=== PATIENT | male | born 1975 | race Caucasian/White ===

== ENCOUNTER → 2019-12-28 13:07 | Outpatient (BNVA) | payer SELFPAY | PROVIDERS: Visit Provider Nurse Practitioner Family | DX: R50.9 Fever, unspecified (principal); J06.9 Acute upper respiratory infection, unspecified; B97.89 Other viral agents as the cause of diseases classified elsewhere | CPT/HCPCS: 80053; 85025; 87400; 87635 ==

== ENCOUNTER → 2021-06-07 13:09 | Outpatient (BNVA) | payer OTHER, SELFPAY | PROVIDERS: Visit Provider Nurse Practitioner Family | DX: J06.9 Acute upper respiratory infection, unspecified (principal); B97.89 Other viral agents as the cause of diseases classified elsewhere; Z20.822 Contact with and (suspected) exposure to COVID-19 | CPT/HCPCS: 87635 ==

== ENCOUNTER 2022-01-25 15:02 | Emergency (ER) | payer SELFPAY ==
[2022-01-25 15:06] VITALS: BP 178/94; PULSE 87; RESP 18; TEMP 36.8; O2SAT 98; BMI 25.7
--- NOTE | 2022-01-25 15:20 | W.ED.EXTPRO ---
HPI - Extremity Problem General: Chief complaint: Extremity Injury, Upper Stated complaint: Wants a second opinion on smashed fingers Time Seen by Provider: 01/25/22 15:14 History of Present Illness: Patient presents with wanting second opinion on finger laceration and fracture he has. Patient seen at [facility] yesterday and has distal found phalanges of #3 and 4 finger fractured from dropping a heavy grade. Did have lacerations to both of his fingers and they were sewed up loosely. Patient is wanting a tetanus shot and 1 of there is any pain medicine can have because he cannot take narcotics to do being on Suboxone Associated symptoms: Deny chest pain, fever(s) or rash Review of Systems Const: Denies: fever(s), chills or body aches Eyes: Denies: eye discomfort ENMT: Denies: throat pain Card: Denies: chest pain Resp: Denies: dyspnea GI: Denies: abdominal pain, nausea or vomiting Musc: Reports: other (Pain right hand) Skin/Breast: Reports: other (Has lacerations of finger and right hand that are closed loosely); Denies: rash Neuro: Denies: headache(s) Psych: Denies: depression or suicidal ideation [facility] ED PFSH: Social History Smoking and tobacco status: current every day smoker Alcohol intake: never Physical Exam Const: COMMON NORMALS: no acute distress Cardio: COMMON NORMALS: regular rate RATE: regular rate Skin: OTHER: Laceration repair shows distal aspects of fat pad #3 and 4 finger with lacerations and loose configuration. Appears to be good blood flow and capillary refill to those areas able to move finger without difficulty neurovascular intact. Course Vital Signs: Vital signs: Vital Signs Temperature 98.2 F 01/25/22 15:06 Pulse Rate 87 01/25/22 15:06 Respiratory Rate 18 01/25/22 15:06 Blood Pressure 178/94 01/25/22 15:06 Pulse Oximetry 98 01/25/22 15:06 MDM - Extremity (Nontraumatic) Medical Decision Making Here for second opinion on his recently injured fingers. I gave him a second opinion and look like they did a good job down [facility] taking care of his fingers and they gave him Celebrex to help with his discomfort and give him a tetanus shot as requested. Patient has appointment with a hand surgeon on Friday at [facility]. Discharge Plan Discharge Patient Disposition: Home Clinical Impression: Finger fracture Condition: Stable Prescriptions: New benzonatate 100 mg capsule 200 mg PO TID PRN (Reason: cough) Qty: 14 0RF No Action buprenorphine-naloxone [Suboxone] 8-2 mg film 1 film BUCCAL DAILY 0RF dexamethasone 6 mg tablet 6 mg PO DAILY Qty: 7 0RF doxycycline monohydrate 100 mg capsule 100 mg PO BID Qty: 20 0RF Discharge Orders: Discharge ED (Routine); Ordered 01/25/22 Ordered By: Lamonte Schwab Discharge Diet: Usual diet Discharge Activity: Limit activity as instructed Activity Restrictions/Additional Instructions: Appointment with hand surgeon that you have next week. Keep dressing in place over the fingers. Take medication as directed. 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
[2022-01-25] MEDS: tetanus-dipt-pertussis 0.5 mL SDV IM (15:48)
== END 2022-01-25 15:50 | disposition home or self-care (01) ==
PROVIDERS: Emergency Provider Nurse Practitioner Family
DX: S62.609A Fracture of unspecified phalanx of unspecified finger, initial encounter for closed fracture (principal); S61.212A Laceration without foreign body of right middle finger without damage to nail, initial encounter; S61.214A Laceration without foreign body of right ring finger without damage to nail, initial encounter; X58.XXXA Exposure to other specified factors, initial encounter; F17.200 Nicotine dependence, unspecified, uncomplicated; Z23 Encounter for immunization
CPT/HCPCS: 90471; 90715; 99283; A6446

== ENCOUNTER 2022-02-25 12:33 | Emergency (ER) | payer SELFPAY ==
[2022-02-25 12:41] VITALS: BP 168/97; PULSE 79; RESP 16; TEMP 37.2; O2SAT 98
--- NOTE | 2022-02-25 13:17 | ED_ITS ---
HPI - Skin/Abscess/Foreign Bdy General: Chief complaint: General Medical Stated complaint: Rash on leg itches and oozes Time Seen by Provider: 02/25/22 12:48 Source: patient Mode of arrival: ambulatory Limitations: no limitations History of Present Illness: Patient is a 46-year-old male who presents to ED today with a complaint of a chronic rash over the past 8 or 9 months. Patient states his rash is located to his bilateral anterior lower legs, elbows, buttocks and genitalia. Patient states he has never sought any form of evaluation for the rash. He feels like the lesions on his penis could be secondary to an STD. Patient does report a small amount of dysuria. He states he has had the same sexual partner for several months now and she is not symptomatic. He has not noticed penile discharge. Lesions on his penis are not painful. MD complaint: rash Onset (ago): month(s) Tetanus up to date: yes Location: generalized Relieving factors: none Exacerbating factors: none Context: none Associated symptoms: Deny chills, fever(s), nausea or vomiting Treatments prior to arrival: none Review of Systems Const: Denies: fever(s), chills, body aches, fatigue or malaise Card: Denies: chest pain Resp: Denies: dyspnea GI: Denies: abdominal pain, nausea, vomiting or diarrhea : Reports: dysuria and genital lesions; Denies: flank pain, difficulty urinating, urinary frequency, urinary urgency, urinary hesitancy, difficulty starting urination, change in urine stream, hematuria, genital pain, penile discharge or testicular pain Musc: Denies: neck pain, back pain, extremity pain or joint pain Skin/Breast: Reports: rash Neuro: Denies: headache(s), numbness in extremities, weakness in extremities or sensory changes PFSH ED PFSH: Social History Smoking and tobacco status: current every day smoker Alcohol intake: never Physical Exam Const: COMMON NORMALS: no acute distress, patient oriented x3, no limitations, alert and well nourished GENERAL APPEARANCE: cooperative ORIENTATION/CONSC IOUSNESS: Yes awake, Yes oriented to person, Yes oriented to place and Yes oriented to time HENMT: COMMON NORMALS: normocephalic and atraumatic HEAD & SCALP: normal to inspection, normocephalic and atraumatic Eye: GENERAL EYE: appearance normal, both eyes and all related structures Resp: COMMON NORMALS: normal respiratory effort and clear to auscultation bilaterally AUSCULTATION: clear to auscultation bilaterally Cardio: COMMON NORMALS: regular rate and regular rhythm RATE: regular rate RHYTHM: regular rhythm GI: COMMON NORMALS: Normal to inspection, nondistended, normoactive bowel sounds present, Soft to palpation, non-tender, No hepatosplenomegaly present and no masses PALPATION: Yes Soft to palpation and Yes No hepatosplenomegaly present : COMMON NORMALS: Yes no CVA tenderness BLADDER/KIDNEY EXAM: Yes no CVA tenderness PENIS: circumcised, not edematous, not erythematous, no vesicles and other (few scaly plaques present on shaft similar to his rash on other areas) MEATUS: meatus normal OTHER: lesions do not look herpetic and given the chronicity this would be unlikely; nothing that resembles a chancre; no inguinal lymphadenopathy Back/Pelvis: COMMON NORMALS: no CVA tenderness Extremity: GENERAL: Yes normal exam except as noted Neuro: [place] COMA SCALE: document GCS findings [place] coma scale eye opening: Spontaneous [place] coma scale verbal response: Orientated [place] coma scale motor response: Obey commands [place] coma scale total score: 15 COMMON NORMALS: patient oriented x3, moves all extremities, no focal motor deficits and no sensory deficits noted SENSORIUM/ORIENTATION: Yes alert, Yes oriented to person, Yes oriented to place and Yes oriented to time Skin: RASHES: rashes noted OTHER: pt has diffuse erythematous thick plaque like lesions to his bilateral anterior lower legs, extensor elbow surfaces, and gluteal cleft Course Vital Signs: Vital signs: Vital Signs Temperature 98.2 F 02/25/22 14:44 Pulse Rate 88 02/25/22 14:44 Respiratory Rate 18 02/25/22 14:44 Blood Pressure 136/88 02/25/22 14:44 Pulse Oximetry 99 02/25/22 14:44 MDM - Skin/Abscess/Foreign Bdy Medicial Decision Making Patient is here with a chronic rash over the past 8 months or so. He did have a concern for STD given his penile lesions however these look similar to his rash in other areas that I feel is most likley secondary to a form of psoriasis. He was having some dysuria so I went ahead and obtained a gonorrhea/chlamydia cult ure. His blood work and urine are fairly unremarkable. He has mild elevations to his LFTs. At this point I will refer him to a primary care provider for further evaluation. If they feel necessary they can then place a referral to dermatology. Lab Data : 02/25/22 13:20 02/25/22 13:20 Laboratory Results WBC 6.5 10^3/uL (4.0-10.0) 02/25/22 13:20 RBC 4.81 10^6/uL (4.1-5.3) 02/25/22 13:20 Hgb 16.1 g/dL (11.7-16.6) 02/25/22 13:20 Hct 45.9 % (42.0-52.0) 02/25/22 13:20 MCV 95.4 fl (80-94) H 02/25/22 13:20 MCH 33.5 pg (28.0-34.0) 02/25/22 13:20 MCHC 35.1 g/dL (30.0-36.0) 02/25/22 13:20 RDW 13.9 % (12.1-15.1) 02/25/22 13:20 Plt Count 116 10^3/cmm (130-400) L 02/25/22 13:20 MPV 9.6 fL (7.4-10.4) 02/25/22 13:20 Neut % (Auto) 63.8 % 02/25/22 13:20 Lymph % (Auto) 26.0 % 02/25/22 13:20 [place] % (Auto) 7.3 % 02/25/22 13:20 Eos % (Auto) 2.3 % 02/25/22 13:20 Baso % (Auto) 0.3 % 02/25/22 13:20 Neut # (Auto) 4.11 10^3/uL (1.8-7.7) 02/25/22 13:20 Lymph # (Auto) 1.7 10^3/uL (0.8-4.8) 02/25/22 13:20 [place] # (Auto) 0.5 10^3/uL (0.2-0.9) 02/25/22 13:20 Eos # (Auto) 0.2 10^3/uL (0.0-0.8) 02/25/22 13:20 Baso # (Auto) 0.0 10^3/uL (0.0-0.1) 02/25/22 13:20 Nucleated RBC % (auto) 0 % 02/25/22 13:20 Nucleated RBCs # 0.0 /100WBC 02/25/22 13:20 Sodium 137 mmol/L (136-145) 02/25/22 13:20 Potassium 3.8 mmol/L (3.5-5.1) 02/25/22 13:20 Chloride 102 mmol/L (98-107) 02/25/22 13:20 Carbon Dioxide 24 mmol/L (22-29) 02/25/22 13:20 Anion Gap 14.8 (5-19) 02/25/22 13:20 BUN 10 mg/dL (6-20) 02/25/22 13:20 Creatinine 0.7 mg/dL (0.7-1.2) 02/25/22 13:20 GFR Calculation 122.5 mL/min (90-130) 02/25/22 13:20 Glucose 102 mg/dL (65-115) 02/25/22 13:20 Calculated Osmolality 283 mOsm/kg (285-295) L 02/25/22 13:20 Calcium 9.4 mg/dL (8.5-10.5) 02/25/22 13:20 Total Bilirubin 0.9 mg/dL (0.15-1.2) 02/25/22 13:20 AST 74 U/L (0-40) H 02/25/22 13:20 ALT 78 U/L (0-41) H 02/25/22 13:20 Alkaline Phosphatase 141 IU/L (40-130) H 02/25/22 13:20 Total Protein 7.8 g/dL (6.6-8.7) 02/25/22 13:20 Albumin 4.5 g/dL (3.5-5.2) 02/25/22 13:20 Globulin 3.3 g/dL (1.3-4.6) 02/25/22 13:20 Urine Color Dark yellow (Yellow) 02/25/22 13:05 Urine Appearance Clear (CLEAR) 02/25/22 13:05 Urine pH 5 (5-7) 02/25/22 13:05 Ur Specific [place] 1.025 (1.005-1.030) 02/25/22 13:05 Urine Protein Neg (Negative) 02/25/22 13:05 Urine Glucose (UA) Norm (Normal) 02/25/22 13:05 Urine Ketones 1+ (Negative) H 02/25/22 13:05 Urine Blood Neg (Negative) 02/25/22 13:05 Urine Nitrate Negative (Negative) 02/25/22 13:05 Urine Bilirubin 1+ (Negative) H 02/25/22 13:05 Urine Urobilinogen 4 mg/dL (Negative) H 02/25/22 13:05 Ur Leukocyte Esterase Trace (Negative) H 02/25/22 13:05 Urine RBC 0-4 /hpf (0-2) H 02/25/22 13:05 Urine WBC 0-4 /hpf (0-5) H 02/25/22 13:05 Ur Squamous Epith Cells 0-4 /hpf (0-5) H 02/25/22 13:05 Amorphous Sediment Not Reportable 02/25/22 13:05 Urine Bacteria Trace /hpf (NONE) 02/25/22 13:05 Urine Mucus 2+ /hpf 02/25/22 13:05 Discharge Plan Discharge Patient Disposition: Home Clinical Impression: Skin eruption resembling psoriasis Condition: Stable Prescriptions: No Action buprenorphine-naloxone [Suboxone] 8-2 mg film 1 film BUCCAL DAILY 0RF dexamethasone 6 mg tablet 6 mg PO DAILY Qty: 7 0RF doxycycline monohydrate 100 mg capsule 100 mg PO BID Qty: 20 0RF Celebrex 100 mg capsule 200 mg PO BID Qty: 20 0RF Discharge Orders: Discharge ED (Routine); Ordered 02/25/22 Ordered By: Nidhi Mcgregor Activity Restrictions/Additional Instructions: As we discussed case management should contact you shortly to set you up with a primary care provider. They can evaluate you and refer you to dermatology if needed. Coding Level of Care Code ED Lead Case Manager for [employer]
[2022-02-25 13:32] LABS: Bilirubin Urine 1+ (Negative); Blood Urine Neg (Negative); Glucose Urine UA Norm (Normal); Ketones Urine 1+ (Negative); Leukocyte Esterase Urine Trace (Negative); Nitrate Urine Negative (Negative); Protein Urine Neg (Negative); Specific Gravity, Urine 1.025 (1.005-1.030); Urine Appearance Clear (CLEAR); Urine Color Dark Yellow (Yellow); Urobilinogen Urine 4 mg/dL (Negative); pH Urine 5 (5-7)
[2022-02-25 13:33] LABS: Add Urine Microscopic? YES
[2022-02-25 13:35] LABS: Basophils % 0.3 %; Eosinophils # 0.2 10^3/uL (0.0-0.8); Eosinophils % 2.3 %; Hematocrit 45.9 % (42.0-52.0); Hemoglobin 16.1 g/dL (11.7-16.6); Lymphocytes # 1.7 10^3/uL (0.8-4.8); Mean Corpuscular HGB Conc 35.1 g/dL (30.0-36.0); Mean Corpuscular Hemoglobin 33.5 pg (28.0-34.0); Mean Corpuscular Volume 95.4 fl (80-94); Mean Platelet Volume 9.6 fL (7.4-10.4); Monocytes # 0.5 10^3/uL (0.2-0.9); Monocytes % 7.3 %; Neutrophils # 4.11 10^3/uL (1.8-7.7); Neutrophils % 63.8 %; Nucleated Red Blood Cells % 0 %; Platelet Count 116 10^3/cmm (130-400); Red Blood Count 4.81 10^6/uL (4.1-5.3); Red Cell Distribution Width 13.9 % (12.1-15.1); White Blood Count 6.5 10^3/uL (4.0-10.0)
[2022-02-25 13:40] LABS: Bacteria Urine TRACE /hpf; Mucus Urine 2+ /hpf; RBC Urine 0-4 /hpf (0-2); Squamous Epithelial Cell Urine 0-4 /hpf (0-5); WBC Urine 0-4 /hpf (0-5)
[2022-02-25 13:41] LABS: Add Urine Culture? No
[2022-02-25 13:46] LABS: Alanine Aminotransferase 78 U/L (0-41); Albumin Level 4.5 g/dL (3.5-5.2); Alkaline Phosphatase 141 IU/L (40-130); Anion Gap 14.8 (5-19); Aspartate Amino Transferase 74 U/L (0-40); Blood Urea Nitrogen 10 mg/dL (6-20); Calcium 9.4 mg/dL (8.5-10.5); Carbon Dioxide 24 mmol/L (22-29); Chloride 102 mmol/L (98-107); Globulin 3.3 g/dL (1.3-4.6); Glomerular Filtration Rate 122.5 mL/min (90-130); Glucose 102 mg/dL (65-115); Osmolality Calculated 283 mOsm/kg (285-295); Potassium 3.8 mmol/L (3.5-5.1); Sodium 137 mmol/L (136-145); Total Bilirubin 0.9 mg/dL (0.15-1.2); Total Protein 7.8 g/dL (6.6-8.7)
[2022-02-25 14:16] VITALS: BP 136/81; PULSE 88; RESP 18; TEMP 36.6; O2SAT 98
[2022-02-25 14:44] VITALS: BP 136/88; PULSE 88; RESP 18; TEMP 36.8; O2SAT 99
--- NOTE | 2022-02-27 11:28 | DCPLANNER ---
manager hydraulic had message to speak with patient about getting established with a primary care physician. manager hydraulic called phone number [phone], unable to speak with patient at this time, a voicemail was left for patient to return case management director phone call.
== END 2022-02-25 14:45 | disposition home or self-care (01) ==
PROVIDERS: Emergency Provider Physician Assistant
DX: R21 Rash and other nonspecific skin eruption (principal)
CPT/HCPCS: 80053; 81001; 85025; 87491; 87591; 99282